=== PATIENT | female | born 1955 | race Caucasian/White ===

== ENCOUNTER → 2016-03-26 | Outpatient (REF) ==
[~2016-03-26] MED LIST: *BLDWK8; *GLUCOMETE; /HALO5TAB PO; /INSU7030; /INSU7030 SC; /IPRA3SP; /LOR25TA OR; /PANT40TA; /TIOT18INH; /TIOT18INH INH; ABIL10TA; ABIL10TA OR; ABILIFY15 PO; ACET65TA; ALB2.5NEB NEB; ALBU17IN INH; ALBU17IN2; ALBU83IN; ALBU83IN IN; ALBUTEROL INHALATION; ARTANE PO; ASPEC325 PO; ASPI81TA83 OR; ASTELIN NASAL; AUG500 PO; BABY81CH; BACL10TA2; BACL10TA2 OR; BACL10TA2 PO; BISA10SU PR; BISA10SU2 RE; CAPOTEN PO; CEFT2VL IM; CIPR500T19; CIPR500T4 OR; COLA100C2; COLACE PO; COMBVENT; CRESTOR5 PO; DEPA250C; DEPA500T; DOXYCYC100 PO; DULCOLAX; EYEDRO; FEVE325S RE; FLEEENE4 PR; FLEETS; FLONASESPR NASAL; FLUO10TA2; FLUO10TA2 OR; FURO40TA2; FURO40TA2 PO; GLUCCOSEAC TOPICAL; GLUCOSACCS; GLUCOSE TEST; HALDOL PO; HALO10TA4; HALO10TA4 PO; HUMA100I SC; HUMULINN SC; INSULANT SC; INSULIN 70/30; KEFL500C OR; KEFLEX500 PO; LACHYDRIN TOP; LANCMIS; LANTUS SQ; LASI40TA OR; LIDO5DIS; LISI10TA4; LISI5TAB OR; LISINOPR10 PO; MACR50CA OR; MILKSUS; MILKSUS PO; MIRALEX; MIRALEX PO; MUCINEX PO; MULTIVIT; MULTIVIT PO; Macrobid; NAPROS500 PO; NICOTROLIN PO; NIFEREX; NOVOLOG100 MG/ML; NOVOLOG100 MG/ML SC; OMEP20TA7 OR; OXYB10TA; OXYB10TA OR; PAIN325T; PAIN325T OR; PLAV75TA2; PLAV75TA2 OR; POLY IRON PO; PRED20TA OR; PROZ10CA; ROBITUSSDM PO; ROBITUSSIN CF PO; ROSU10TA; SENOKOT S PO; SIMV40TA2 OR; SPIRIVA [1,]; SYRINS1CC SUBQ; THERGRAN; TYLE325T5 PO; VALP25EL; VALP25EL OR; VICO5TAB; XALATAN OD; ZEBE5TAB; ZEBE5TAB OR; ZEST10TA; ZOCO40TA; [UNRECOGNIZED DRUG - CODE]; [UNRECOGNIZED DRUG - CODE] PO; [UNRECOGNIZED DRUG - CODE] PO; [UNRECOGNIZED DRUG - OTHER]; [UNRECOGNIZED DRUG - OTHER]; [UNRECOGNIZED DRUG - OTHER]; [UNRECOGNIZED DRUG - OTHER] -; [UNRECOGNIZED DRUG - OTHER] SC; [UNRECOGNIZED DRUG - REMARK] TOPICAL; oxygen
[2016-03-26 10:04] LABS: ALBUMIN 2.5 GM/DL (3.2-5.2); ALBUMIN/GLOBULIN RATIO 0.66 (1.00-1.93); ALKALINE PHOSPHATASE 130 U/L (45-117); ALT/SGPT 19 U/L (12-78); AST/SGOT 10 U/L (15-37); BILIRUBIN,DIRECT < 0.1 MG/DL (0.0-0.2); BILIRUBIN,TOTAL 0.1 MG/DL (0.2-1.0); TOTAL PROTEIN 6.3 GM/DL (6.4-8.2)
[2016-03-26 10:12] LABS: MEAN CORPUSCULAR HEMOGLOBIN 29.4 pg (27.0-33.0); MEAN CORPUSCULAR HGB CONC 32.9 g/dl (32.0-36.5); MEAN CORPUSCULAR VOLUME 89.3 fl (80.0-96.0); RED CELL DISTRIBUTION WIDTH 12.5 % (11.5-14.5); WHITE BLOOD COUNT 5.5 K/mm3 (4.0-10.0)
== END ==
LOC: SKLAB5 08:44
PROVIDERS: ATTEND Family Medicine
DX: D64.9 Anemia, unspecified (principal); Z79.899 Other long term (current) drug therapy

== ENCOUNTER → 2016-04-08 | Outpatient (REF) | LOC: SKLAB5 08:17 | PROVIDERS: ATTEND Family Medicine | DX: R30.0 Dysuria (principal) ==

== ENCOUNTER → 2016-04-28 | Outpatient (REF) | payer MEDICAID | LOC: SKLAB5 15:55 | PROVIDERS: ATTEND Family Medicine | DX: R30.9 Painful micturition, unspecified (principal) ==

== ENCOUNTER → 2016-05-21 | Outpatient (REF) ==
[2016-05-21 09:55] LABS: BASO % 0.6 % (0.0-1.0); EOS # 0.2 K/mm3 (0.0-0.50); LARGE UNSTAINED CELL # 0.2 K/mm3 (0.0-0.4); LARGE UNSTAINED CELL % 2.6 % (0.0-4.0); LYMPH # 3.1 K/mm3 (1.5-4.5); LYMPH % 51.3 % (24.0-44.0); MEAN CORPUSCULAR HEMOGLOBIN 29.9 pg (27.0-33.0); MEAN CORPUSCULAR HGB CONC 32.6 g/dl (32.0-36.5); MEAN CORPUSCULAR VOLUME 91.6 fl (80.0-96.0); MONO # 0.4 K/mm3 (0.0-0.8); MONO % 7.3 % (0.0-5.0); NEUTROPHILS % 34.1 % (36.0-66.0); PLATELET COUNT, AUTOMATED 252 k/mm3 (150-450); RED CELL DISTRIBUTION WIDTH 12.4 % (11.5-14.5); WHITE BLOOD COUNT 5.7 K/mm3 (4.0-10.0)
[2016-05-21 10:05] LABS: ALBUMIN 2.7 GM/DL (3.2-5.2); CREATININE FOR GFR 1.16 MG/DL (0.55-1.02); GLOMERULAR FILTRATION RATE 51.1 (>51); POTASSIUM SERUM 4.4 MEQ/L (3.5-5.1)
== END ==
LOC: SKLAB5 07:12
PROVIDERS: ATTEND Family Medicine
DX: E11.9 Type 2 diabetes mellitus without complications (principal); D64.9 Anemia, unspecified; I50.9 Heart failure, unspecified

== ENCOUNTER → 2016-06-13 | Outpatient (REF) | payer MEDICAID | LOC: SKLAB5 08:21 | PROVIDERS: ATTEND Family Medicine | DX: R73.9 Hyperglycemia, unspecified (principal) ==

== ENCOUNTER → 2016-06-14 | Outpatient (REF) | payer MEDICAID | LOC: SKLAB5 06:45 | PROVIDERS: ATTEND Family Medicine | DX: R73.09 Other abnormal glucose (principal) ==

== ENCOUNTER → 2016-06-18 | Outpatient (REF) | payer MEDICAID | LOC: SKLAB5 23:30 | PROVIDERS: ATTEND Family Medicine | DX: R30.9 Painful micturition, unspecified (principal) ==

== ENCOUNTER → 2016-07-14 | Outpatient (REF) | LOC: SKLAB5 07:05 | PROVIDERS: ATTEND Family Medicine | DX: R73.09 Other abnormal glucose (principal) ==

== ENCOUNTER → 2016-07-15 | Outpatient (REF) | payer MEDICAID | LOC: SKLAB5 18:48 | PROVIDERS: ATTEND Family Medicine | DX: E11.9 Type 2 diabetes mellitus without complications (principal) ==

== ENCOUNTER → 2016-07-17 | Outpatient (REF) | payer MEDICAID | LOC: SKLAB5 05:27 | PROVIDERS: ATTEND Family Medicine | DX: N39.0 Urinary tract infection, site not specified (principal); E11.9 Type 2 diabetes mellitus without complications ==

== ENCOUNTER → 2016-08-09 | Outpatient (REF) | payer MEDICAID | LOC: SKLAB5 12:10 | PROVIDERS: ATTEND Family Medicine | DX: R73.09 Other abnormal glucose (principal) ==

== ENCOUNTER → 2016-08-20 | Outpatient (REF) ==
[2016-08-20 08:39] LABS: BASO # 0.1 K/mm3 (0.0-0.2); EOS # 0.2 K/mm3 (0.0-0.50); EOS % 3.3 % (0.0-3.0); LARGE UNSTAINED CELL # 0.2 K/mm3 (0.0-0.4); LYMPH # 2.8 K/mm3 (1.5-4.5); LYMPH % 43.8 % (24.0-44.0); MEAN CORPUSCULAR HEMOGLOBIN 29.9 pg (27.0-33.0); MEAN CORPUSCULAR HGB CONC 32.5 g/dl (32.0-36.5); MEAN CORPUSCULAR VOLUME 91.8 fl (80.0-96.0); MONO # 0.4 K/mm3 (0.0-0.8); MONO % 6.9 % (0.0-5.0); NEUTROPHILS # 2.5 K/mm3 (1.8-7.7); PLATELET COUNT, AUTOMATED 277 k/mm3 (150-450); RED CELL DISTRIBUTION WIDTH 12.7 % (11.5-14.5); WHITE BLOOD COUNT 5.9 K/mm3 (4.0-10.0)
[2016-08-20 09:50] LABS: ALBUMIN/GLOBULIN RATIO 0.7 (1.00-1.93); BILIRUBIN,TOTAL 0.2 MG/DL (0.2-1.0); CALCIUM LEVEL 9.4 MG/DL (8.5-10.1); CREATININE FOR GFR 1.02 MG/DL (0.55-1.02); GLOMERULAR FILTRATION RATE 59.3 (>51); PHOSPHORUS LEVEL 3.6 MG/DL (2.5-4.9); POTASSIUM SERUM 4.6 MEQ/L (3.5-5.1); TOTAL PROTEIN 7.3 GM/DL (6.4-8.2)
== END ==
LOC: SKLAB5 07:30
PROVIDERS: ATTEND Family Medicine
DX: E11.9 Type 2 diabetes mellitus without complications (principal); D64.9 Anemia, unspecified; E78.5 Hyperlipidemia, unspecified; N18.9 Chronic kidney disease, unspecified

== ENCOUNTER → 2016-08-27 | Outpatient (REF) | payer MEDICAID | LOC: SKLAB5 22:09 | PROVIDERS: ATTEND Family Medicine | DX: R30.9 Painful micturition, unspecified (principal) ==

== ENCOUNTER → 2016-08-28 | Outpatient (REF) | payer MEDICAID | LOC: SKLAB5 16:34 | PROVIDERS: ATTEND Family Medicine | DX: R73.09 Other abnormal glucose (principal) ==

== ENCOUNTER → 2016-09-03 | Outpatient (REF) ==
[2016-09-03 10:30] LABS: BASO # 0.1 K/mm3 (0.0-0.2); BASO % 0.7 % (0.0-1.0); EOS # 0.1 K/mm3 (0.0-0.50); EOS % 1.1 % (0.0-3.0); LARGE UNSTAINED CELL # 0.1 K/mm3 (0.0-0.4); LARGE UNSTAINED CELL % 1.6 % (0.0-4.0); LYMPH % 22.2 % (24.0-44.0); MEAN CORPUSCULAR HEMOGLOBIN 30.3 pg (27.0-33.0); MEAN CORPUSCULAR VOLUME 94.5 fl (80.0-96.0); MONO # 0.7 K/mm3 (0.0-0.8); MONO % 8.2 % (0.0-5.0); NEUTROPHILS # 5.5 K/mm3 (1.8-7.7); NEUTROPHILS % 66.2 % (36.0-66.0); PLATELET COUNT, AUTOMATED 244 k/mm3 (150-450); RED CELL DISTRIBUTION WIDTH 12.6 % (11.5-14.5); WHITE BLOOD COUNT 8.2 K/mm3 (4.0-10.0)
--- NOTE | 2016-09-03 15:04 | REP ---
Chest one-view HISTORY: Cough Comparison: 10/16/1959 The lungs are clear. The heart is upper limits of normal in size. The pulmonary vasculature is normal in appearance. Impression: No acute disease. Signed by Hoang Cruz MD 09/03/2016 02:55 P
== END ==
LOC: SKLAB5 07:36
PROVIDERS: ATTEND Family Medicine
DX: R50.9 Fever, unspecified (principal); R05 Cough; R09.81 Nasal congestion

== ENCOUNTER → 2016-09-13 | Outpatient (REF) | LOC: SKLAB5 08:38 | PROVIDERS: ATTEND Family Medicine | DX: R73.09 Other abnormal glucose (principal) ==

== ENCOUNTER → 2016-09-16 | Outpatient (REF) | LOC: SKLAB5 06:44 | PROVIDERS: ATTEND Family Medicine | DX: E11.649 Type 2 diabetes mellitus with hypoglycemia without coma (principal) ==

== ENCOUNTER → 2016-09-24 | Outpatient (REF) ==
[2016-09-24 10:08] LABS: MEAN CORPUSCULAR HGB CONC 32.2 g/dl (32.0-36.5); MEAN CORPUSCULAR VOLUME 93.3 fl (80.0-96.0); RED CELL DISTRIBUTION WIDTH 12.5 % (11.5-14.5); WHITE BLOOD COUNT 7.7 K/mm3 (4.0-10.0)
[2016-09-24 10:47] LABS: ALBUMIN 2.9 GM/DL (3.2-5.2); ALBUMIN/GLOBULIN RATIO 0.57 (1.00-1.93); ALKALINE PHOSPHATASE 157 U/L (45-117); ALT/SGPT 19 U/L (12-78); AST/SGOT 12 U/L (15-37); BILIRUBIN,DIRECT < 0.1 MG/DL (0.0-0.2); BILIRUBIN,TOTAL 0.2 MG/DL (0.2-1.0)
== END ==
LOC: SKLAB5 08:20
PROVIDERS: ATTEND Family Medicine
DX: J44.9 Chronic obstructive pulmonary disease, unspecified (principal); D64.9 Anemia, unspecified; Z79.899 Other long term (current) drug therapy

== ENCOUNTER → 2016-10-12 | Outpatient (REF) | payer MEDICAID | LOC: M LAB 18:02 → SKLAB5 18:02 | PROVIDERS: ATTEND Family Medicine | DX: R73.09 Other abnormal glucose (principal) ==

== ENCOUNTER → 2016-10-16 | Outpatient (REF) | payer MEDICAID | LOC: SKLAB5 02:09 | PROVIDERS: ATTEND Family Medicine | DX: E11.9 Type 2 diabetes mellitus without complications (principal); R30.9 Painful micturition, unspecified ==

== ENCOUNTER → 2016-10-17 | Outpatient (REF) | payer MEDICAID | LOC: SKLAB5 16:30 | PROVIDERS: ATTEND Family Medicine | DX: R73.09 Other abnormal glucose (principal) ==

== ENCOUNTER → 2016-10-25 | Outpatient (REF) | payer MEDICAID | LOC: SKLAB5 16:40 | PROVIDERS: ATTEND Family Medicine | DX: R73.09 Other abnormal glucose (principal) ==

== ENCOUNTER → 2016-11-04 | Outpatient (REF) | payer MEDICAID | LOC: SKLAB5 18:45 | PROVIDERS: ATTEND Family Medicine | DX: R73.09 Other abnormal glucose (principal) ==

== ENCOUNTER → 2016-11-05 | Outpatient (REF) ==
[2016-11-05 11:58] LABS: BASO % 0.7 % (0.0-1.0); EOS # 0.2 K/mm3 (0.0-0.50); EOS % 3.1 % (0.0-3.0); LARGE UNSTAINED CELL # 0.2 K/mm3 (0.0-0.4); LARGE UNSTAINED CELL % 2.9 % (0.0-4.0); LYMPH # 2.7 K/mm3 (1.5-4.5); LYMPH % 43.4 % (24.0-44.0); MEAN CORPUSCULAR HEMOGLOBIN 30.2 pg (27.0-33.0); MEAN CORPUSCULAR HGB CONC 33.2 g/dl (32.0-36.5); MONO # 0.4 K/mm3 (0.0-0.8); MONO % 6.5 % (0.0-5.0); NEUTROPHILS # 2.5 K/mm3 (1.8-7.7); NEUTROPHILS % 43.5 % (36.0-66.0); PLATELET COUNT, AUTOMATED 217 k/mm3 (150-450); RED CELL DISTRIBUTION WIDTH 12.8 % (11.5-14.5); WHITE BLOOD COUNT 5.8 K/mm3 (4.0-10.0)
[2016-11-05 12:26] LABS: ALBUMIN 2.6 GM/DL (3.2-5.2); ALBUMIN/GLOBULIN RATIO 0.7 (1.00-1.93); BILIRUBIN,TOTAL 0.3 MG/DL (0.2-1.0); CREATININE FOR GFR 1.16 MG/DL (0.55-1.02); GLOMERULAR FILTRATION RATE 50.9 (>51); TOTAL PROTEIN 6.3 GM/DL (6.4-8.2)
--- NOTE | 2016-11-05 20:14 | ECGEPIP ---
Stationary ECG Study [facility] Test Date: 2016-11-05 Pat Name: ANGIE PITTS Department: Room: - Gender: F [employer] Specialist: KIMMIE : 1955 Requested By: Jona Amador Order Number: [id number] Reading MD: Denita Beltrán Measurements Intervals [place] Rate: 64 P: 57 LA: 159 QRS: -19 QRSD: 107 T: 138 QT: 391 QTc: 404 Interpretive Statements SINUS RHYTHM LOW QRS VOLTAGE IN PRECORDIAL LEADS PROBABLE ANTEROLATERAL MYOCARDIAL INFARCTION, OF INDETERMINATE AGE NON-SPECIFIC STT ABNORMALITIES SINCE 01/29/12 SUSPICION FOR UT IS NEW Electronically Signed On 11-05-2016 20:13:44 EDT by Denita Beltrán
== END ==
LOC: SKLAB5 11:10
PROVIDERS: ATTEND Family Medicine
DX: R53.83 Other fatigue (principal); G45.9 Transient cerebral ischemic attack, unspecified

== ENCOUNTER → 2016-11-06 | Outpatient (CLI) | payer MEDICAID, MEDICARE ==
--- NOTE | 2016-11-06 13:13 | REP ---
CAROTID ULTRASOUND: Real-time ultrasound evaluation and duplex Doppler interrogation of the extracranial carotid vasculature is performed. There is mild plaquing and narrowing in both carotid bulbs extending into the internal and external carotid arteries. Luminal narrowing is less than 50%. There is no evidence of hemodynamically significant stenosis of either internal carotid artery. Normal flow velocities are seen. The vertebral arteries could not be visualized. RIGHT LEFT Peak systolic velocity ICA 65.5 cm/s 79.2 cm/s End diastolic velocity ICA 11.3 cm/s 14 cm/s Peak systolic velocity CCA 97.8 cm/s 95.1 cm/s Peak systolic velocity ECA 93.7 cm/s 119 cm/s ICA/CCA ratio 0.67 0.85 IMPRESSION: Bilateral luminal narrowing of the internal carotid arteries less than 50%. No evidence of hemodynamically significant stenosis. Signed by Raffi Hardy MD 11/06/2016 01:04 P
== END ==
LOC: M RAD 12:06
PROVIDERS: ATTEND Family Medicine
DX: G45.9 Transient cerebral ischemic attack, unspecified (principal)

== ENCOUNTER → 2016-11-09 | Outpatient (CLI) | payer MEDICAID | LOC: SKLAB5 17:47 → SKLAB3 17:47 | PROVIDERS: ATTEND Family Medicine | DX: R73.09 Other abnormal glucose (principal) ==

== ENCOUNTER → 2016-11-12 | Outpatient (REF) ==
[2016-11-12 08:54] LABS: ANION GAP 10 MEQ/L (8-16); BLOOD UREA NITROGEN 17 MG/DL (7-18); CALCIUM LEVEL 8.8 MG/DL (8.5-10.1); CARBON DIOXIDE LEVEL 24 MEQ/L (21-32); CHLORIDE LEVEL 109 MEQ/L (98-107); CREATININE FOR GFR 0.91 MG/DL (0.55-1.02); GLOMERULAR FILTRATION RATE > 60.0 (>51); GLUCOSE, FASTING 127 MG/DL (70-105); SODIUM LEVEL 143 MEQ/L (136-145)
== END ==
LOC: SKLAB5 07:49
PROVIDERS: ATTEND Family Medicine
DX: Z86.73 Personal history of transient ischemic attack (TIA), and cerebral infarction without residual deficits (principal)

== ENCOUNTER → 2016-11-13 | Outpatient (REF) ==
[2016-11-13 12:30] LABS: BASO % 0.6 % (0.0-1.0); EOS % 0.3 % (0.0-3.0); LARGE UNSTAINED CELL # 0.2 K/mm3 (0.0-0.4); LARGE UNSTAINED CELL % 2.6 % (0.0-4.0); LYMPH # 2.3 K/mm3 (1.5-4.5); MEAN CORPUSCULAR HEMOGLOBIN 29.6 pg (27.0-33.0); MEAN CORPUSCULAR HGB CONC 32.1 g/dl (32.0-36.5); MEAN CORPUSCULAR VOLUME 92.5 fl (80.0-96.0); MONO # 0.7 K/mm3 (0.0-0.8); NEUTROPHILS # 4.2 K/mm3 (1.8-7.7); NEUTROPHILS % 58.4 % (36.0-66.0); PLATELET COUNT, AUTOMATED 211 k/mm3 (150-450); RED CELL DISTRIBUTION WIDTH 12.9 % (11.5-14.5); WHITE BLOOD COUNT 7.2 K/mm3 (4.0-10.0)
[2016-11-13 13:00] LABS: CALCIUM LEVEL 9.4 MG/DL (8.5-10.1); CREATININE FOR GFR 1.14 MG/DL (0.55-1.02); GLOMERULAR FILTRATION RATE 51.9 (>51); POTASSIUM SERUM 4.7 MEQ/L (3.5-5.1)
--- NOTE | 2016-11-13 13:36 | REP ---
PORTABLE CHEST: AP portable view of the chest is performed. COMPARISON: 09/03/2016. There is mild cardiomegaly. There is pulmonary venous hypertension. No new infiltrates are seen. There is mild calcification of the thoracic aorta. IMPRESSION: Cardiomegaly and venous hypertension. No acute infiltrate. Signed by Raffi Hardy MD 11/13/2016 05:22 P
== END ==
LOC: SKLAB5 06:39
PROVIDERS: ATTEND Family Medicine
DX: R50.9 Fever, unspecified (principal)

== ENCOUNTER → 2016-11-16 | Outpatient (REF) | LOC: SKLAB5 06:38 | PROVIDERS: ATTEND Family Medicine | DX: R73.09 Other abnormal glucose (principal) ==

== ENCOUNTER → 2016-11-26 | Outpatient (CLI) | payer MEDICAID ==
--- NOTE | 2016-11-26 17:21 | REP ---
Clinical: Lower chest pain and constipation . Comparison: 11/13/2016 . Findings: The mediastinum and cardiac silhouette are stable and within normal limits for portable technique. The lung car are clear without acute consolidation, effusion, or pneumothorax. Skeletal structures are intact. Impression: No acute cardiopulmonary process appreciated. Signed by Speedy Hirsch MD 11/26/2016 05:13 P
== END ==
LOC: M RAD 17:03
PROVIDERS: ATTEND Family Medicine
DX: K59.00 Constipation, unspecified (principal)

== ENCOUNTER → 2016-11-26 | Outpatient (REF) ==
[2016-11-26 09:02] LABS: BASO % 0.8 % (0.0-1.0); EOS # 0.2 K/mm3 (0.0-0.50); EOS % 3.4 % (0.0-3.0); LARGE UNSTAINED CELL # 0.3 K/mm3 (0.0-0.4); LARGE UNSTAINED CELL % 5.2 % (0.0-4.0); LYMPH # 2.4 K/mm3 (1.5-4.5); LYMPH % 48.4 % (24.0-44.0); MEAN CORPUSCULAR HGB CONC 32.4 g/dl (32.0-36.5); MEAN CORPUSCULAR VOLUME 92.4 fl (80.0-96.0); MONO # 0.4 K/mm3 (0.0-0.8); MONO % 7.5 % (0.0-5.0); NEUTROPHILS # 1.7 K/mm3 (1.8-7.7); NEUTROPHILS % 34.6 % (36.0-66.0); PLATELET COUNT, AUTOMATED 328 k/mm3 (150-450); RED CELL DISTRIBUTION WIDTH 13.7 % (11.5-14.5)
[2016-11-26 09:19] LABS: ALBUMIN 2.5 GM/DL (3.2-5.2); ANION GAP 8 MEQ/L (8-16); BLOOD UREA NITROGEN 16 MG/DL (7-18); CALCIUM LEVEL 9.2 MG/DL (8.5-10.1); CARBON DIOXIDE LEVEL 26 MEQ/L (21-32); CHLORIDE LEVEL 107 MEQ/L (98-107); CREATININE FOR GFR 0.99 MG/DL (0.55-1.02); GLOMERULAR FILTRATION RATE > 60.0 (>51); GLUCOSE, FASTING 143 MG/DL (70-105); PHOSPHORUS LEVEL 2.8 MG/DL (2.5-4.9); SODIUM LEVEL 141 MEQ/L (136-145)
[2016-11-26 09:25] LABS: POTASSIUM SERUM 5.7 MEQ/L (3.5-5.1)
== END ==
LOC: SKLAB5 07:31
PROVIDERS: ATTEND Family Medicine
DX: E11.9 Type 2 diabetes mellitus without complications (principal); D64.9 Anemia, unspecified

== ENCOUNTER → 2016-11-27 | Outpatient (REF) | payer MEDICAID | LOC: SKLAB5 01:51 | PROVIDERS: ATTEND Family Medicine | DX: R09.81 Nasal congestion (principal); M79.673 Pain in unspecified foot ==

== ENCOUNTER → 2016-12-17 | Outpatient (REF) | LOC: SKLAB5 06:44 | PROVIDERS: ATTEND Family Medicine | DX: R73.09 Other abnormal glucose (principal) ==

== ENCOUNTER → 2017-01-31 | Outpatient (REF) | payer MEDICAID | LOC: SKLAB5 06:50 | PROVIDERS: ATTEND Family Medicine | DX: E16.2 Hypoglycemia, unspecified (principal) ==

== ENCOUNTER → 2017-02-01 | Outpatient (REF) | LOC: SKLAB5 11:48 | PROVIDERS: ATTEND Family Medicine | DX: E11.9 Type 2 diabetes mellitus without complications (principal) ==

== ENCOUNTER → 2017-02-11 | Outpatient (REF) | payer MEDICAID | LOC: SKLAB5 13:00 | PROVIDERS: ATTEND Family Medicine | DX: E16.2 Hypoglycemia, unspecified (principal); R53.83 Other fatigue ==

== ENCOUNTER → 2017-02-12 | Outpatient (REF) | LOC: SKLAB5 07:29 | PROVIDERS: ATTEND Family Medicine | DX: E16.1 Other hypoglycemia (principal) ==

== ENCOUNTER → 2017-02-17 | Outpatient (REF) ==
[2017-02-17 10:33] LABS: BLOOD UREA NITROGEN 10 MG/DL (7-18); CREATININE FOR GFR 0.89 MG/DL (0.55-1.02); GLOMERULAR FILTRATION RATE > 60.0 (>51)
== END ==
LOC: SKLAB5 07:46
PROVIDERS: ATTEND Family Medicine
DX: I73.9 Peripheral vascular disease, unspecified (principal)

== ENCOUNTER → 2017-02-18 | Outpatient (REF) | payer MEDICAID | LOC: SKLAB5 22:54 | PROVIDERS: ATTEND Family Medicine | DX: R30.0 Dysuria (principal) ==

== ENCOUNTER → 2017-02-24 | Outpatient (CLI) | payer MEDICAID ==
[~2017-02-24] MED LIST changes: +ISOVUE-370 76% 100ML VIAL (Q9967) As Ordered ONE
--- NOTE | 2017-02-24 11:14 | REP ---
CT ANGIOGRAM ABDOMINAL AORTA WITH RUNOFF LOWER EXTREMITY CT ANGIOGRAM: 02/24/2017. Comparison: 04/26/2015. Clinical history: Peripheral arterial disease, left leg ulceration on the foot. Technique: Bolus of 100 mL Isovue [address] aortogram and runoff technique performed. Coronal and sagittal reconstructions with MIP reformats, curved reformat of the right and left iliac and femoral arteries and 3-D surface rendering rotated about the longitudinal axis of the body. CT non-angiographic findings: Abdomen: Lung bases were clear. Heart shows some left atrial enlargement. No gross cardiomegaly or pericardial thickening/effusion and no hiatal hernia. Liver and spleen without focal lesion. The left hepatic lobe is mildly prominent. No gross hepatomegaly. Gallbladder shows no calcified stone or mass. Spleen is not enlarged. Adrenal glands normal. Kidneys show function without obstruction, stone or mass. Ureters show normal course to the bladder without stone. There is no periaortic or retroperitoneal pathologic sized lymphadenopathy. Pancreas grossly intact. Small bowel loops in the abdomen proper were unremarkable. There is some diastasis of the rectus muscles near the umbilicus with omental fat herniation into the umbilicus. The colon shows scattered stool and gas without signs of colitis or diverticulitis. I see no perforation or free air in the abdomen or pelvis on lung window review of all CT slices. Bone windows show lumbar and lower thoracic spine without compression deformity or destructive lesions. Posterior elements and the visualized ribs also grossly intact. CT pelvis: Bone windows show sacrum, SI joints, pelvis and hips with minor degenerative change without destructive lesion or fractures. Small bowel loops in the deep pelvis unremarkable. Distal left colon to the rectosigmoid intact. Uterus not enlarged and tilted to the left side of the pelvis. No pelvic mass. No pelvic adenopathy or ascites. No inguinal or pelvic ventral hernia. No inguinal adenopathy. Lower extremities: The anterior and posterior compartment musculatures of the thighs and calves and are were grossly symmetric without discrete mass or fluid collection. There is subcutaneous edema in the calf and left greater than right foot. Some minor stranding and subcutaneous fat laterally to the thigh. No abnormal fluid collection. Bone windows show the femoral shafts intact. There are some degenerative changes at the left greater than right knee. Tibia and fibula intact. Degenerative changes are seen in the left greater than right foot. I do not see subcutaneous emphysema in the lower extremities. CT angiogram: The abdominal aorta shows minimal scattered plaques without dilatation. No aneurysm or dissection. Origins of the renal arteries are fairly symmetric. The takeoff of the celiac axis and SMA were normal. Iliac arteries: There are atherosclerotic plaques in the proximal common iliacs. The right has a greater diameter than the left. The external iliacs show multiple stents on the left. The right external iliac shows some plaque with the minor stenosis at its junction with the common femoral artery and proximally with the takeoff of the internal iliac. Femoral arteries: The right common femoral artery shows minimal stenosis near the takeoff of the profunda femoris. There is some scattered plaques in that profunda and a moderately severe stenosis in the mid distal SFA. No caliber change below it. Popliteal artery on the right is without stenosis. The left common femoral shows significant plaque and the SFA shows no flow after takeoff of the profunda. There is reconstitution of the distal SFA by collaterals at the level of the popliteal artery. Bilateral lower legs: There is no stenosis of the right popliteal artery. The runoff in the right lower extremity is passed through the peroneal artery with limited flow due to multiple stenoses in the posterior and anterior tibial arteries. The left popliteal artery is reconstituted and the best flow toward the ankle was via the anterior tibial artery which itself has multiple stenoses and distally with the peroneal and posterior tibial showing more stenoses, none of these vessels shows contiguous flow to the ankle. Impression: 1. Atherosclerotic disease as described and with multiple stents left external iliac artery with occlusion of the common femoral and superficial femoral artery on the left reconstituted at the popliteal artery. No named vessel reaches the ankle in a continuous fashion on the left. 2. There is atherosclerotic plaque and some scattered stenoses in the right lower extremity, only the peroneal artery on the right reaches the ankle with the anterior and posterior tibials showing multiple stenoses with less flow than peroneal. 3. Some atherosclerotic plaque distal abdominal aorta and common iliacs as noted. 4. Left atrial enlargement, but no gross cardiomegaly. No significant findings otherwise abdomen and pelvis. 5. Diffuse subcutaneous edema left lower leg and foot without destructive bone lesion clearly identified. There is some minor soft tissue edema lateral aspect of the thigh in the subcutaneous fat. Signed by Sanjay Garcia MD 02/24/2017 07:35 P
== END ==
LOC: M RAD 08:36
PROVIDERS: ATTEND Surgery Vascular Surgery
DX: I70.245 Atherosclerosis of native arteries of left leg with ulceration of other part of foot (principal)
CPT/HCPCS: 75635; Q9967

== ENCOUNTER → 2017-02-25 | Outpatient (REF) ==
[~2017-02-25] MED LIST changes: -ISOVUE-370 76% 100ML VIAL (Q9967) As Ordered ONE
[2017-02-25 09:11] LABS: BASO # 0.1 10^3/uL (0.0-0.2); BASO % 1.1 % (0.0-1.0); EOS # 0.2 10^3/uL (0.0-0.50); IMMATURE GRANULOCYTE % 0.2 % (0-0); LYMPH # 2.8 10^3/uL (1.5-4.5); LYMPH % 52.7 % (24.0-44.0); MEAN CORPUSCULAR HGB CONC 31.6 g/dl (32.0-36.5); MEAN CORPUSCULAR VOLUME 91.8 fl (80.0-96.0); MONO # 0.6 10^3/uL (0.0-0.8); MONO % 10.8 % (0.0-5.0); NEUTROPHILS # 1.7 10^3/uL (1.8-7.7); NEUTROPHILS % 32.2 % (36.0-66.0); PLATELET COUNT, AUTOMATED 203 10^3/uL (150-450); RED CELL DISTRIBUTION WIDTH 13.1 % (11.5-14.5); WHITE BLOOD COUNT 5.4 10^3/uL (4.0-10.0)
[2017-02-25 09:41] LABS: ALBUMIN 2.4 GM/DL (3.2-5.2); ALBUMIN/GLOBULIN RATIO 0.62 (1.00-1.93); ALKALINE PHOSPHATASE 113 U/L (45-117); ALT/SGPT 12 U/L (12-78); ANION GAP 7 MEQ/L (8-16); AST/SGOT 10 U/L (7-37); BILIRUBIN,TOTAL 0.2 MG/DL (0.2-1.0); BLOOD UREA NITROGEN 15 MG/DL (7-18); CALCIUM LEVEL 8.8 MG/DL (8.5-10.1); CARBON DIOXIDE LEVEL 28 MEQ/L (21-32); CHLORIDE LEVEL 108 MEQ/L (98-107); CHOLESTEROL LEVEL 102 MG/DL (<200); CREATININE FOR GFR 0.83 MG/DL (0.55-1.02); GLOMERULAR FILTRATION RATE > 60.0 (>51); GLUCOSE, FASTING 70 MG/DL (70-105); PHOSPHORUS LEVEL 3.5 MG/DL (2.5-4.9); POTASSIUM SERUM 4.2 MEQ/L (3.5-5.1); SODIUM LEVEL 143 MEQ/L (136-145); TOTAL PROTEIN 6.3 GM/DL (6.4-8.2); TRIGLYCERIDES LEVEL 76 MG/DL (<150)
== END ==
LOC: SKLAB5 07:49
PROVIDERS: ATTEND Family Medicine
DX: E11.9 Type 2 diabetes mellitus without complications (principal); D64.9 Anemia, unspecified; R56.9 Unspecified convulsions

== ENCOUNTER → 2017-03-18 | Outpatient (REF) | LOC: SKLAB5 12:25 | DX: E16.2 Hypoglycemia, unspecified (principal) ==

== ENCOUNTER → 2017-03-21 | Outpatient (REF) | payer MEDICAID | LOC: SKLAB5 16:35 | DX: E16.2 Hypoglycemia, unspecified (principal) | CPT/HCPCS: 82947 ==

== ENCOUNTER → 2017-03-24 | Outpatient (REF) | payer MEDICAID ==
[2017-03-24 05:39] LABS: APPEARANCE, URINE CLEAR (CLEAR); BACTERIA, URINE AUTO 1+ (NEGATIVE); BILIRUBIN, URINE AUTO NEGATIVE (NEGATIVE); BLOOD, URINE BLOOD NEGATIVE (NEGATIVE); COLOR, URINE YELLOW (YELLOW); GLUCOSE, URINE (UA) AUTO NEGATIVE (NEGATIVE); KETONE, URINE AUTO NEGATIVE (NEGATIVE); LEUKOCYTE ESTERASE, URINE AUTO 2+ (NEGATIVE); NITRITE, URINE AUTO POSITIVE (NEGATIVE); PROTEIN, URINE AUTO NEGATIVE (NEGATIVE); RBC, URINE AUTO 3 /HPF (0-3); SPECIFIC GRAVITY URINE AUTO 1.004 (1.002-1.035); SQUAMOUS EPITHELIAL CELL UR AU 0 /HPF (0-6); UROBILINOGEN, URINE AUTO 0.2 mg/dL (0.0-2.0); WBC, URINE AUTO 10 /HPF (0-3)
== END ==
LOC: SKLAB5 04:30
DX: R30.0 Dysuria (principal)
CPT/HCPCS: 81001

== ENCOUNTER → 2017-03-25 | Outpatient (REF) ==
[2017-03-25 09:05] LABS: HEMATOCRIT 30.2 % (36.0-47.0); HEMOGLOBIN 9.8 g/dl (12.0-16.0); MEAN CORPUSCULAR HEMOGLOBIN 29.3 pg (27.0-33.0); MEAN CORPUSCULAR HGB CONC 32.5 g/dl (32.0-36.5); MEAN CORPUSCULAR VOLUME 90.4 fl (80.0-96.0); PLATELET COUNT, AUTOMATED 197 10^3/uL (150-450); RED BLOOD COUNT 3.34 10^6/uL (4.00-5.40); RED CELL DISTRIBUTION WIDTH 12.8 % (11.5-14.5); WHITE BLOOD COUNT 6.9 10^3/uL (4.0-10.0)
[2017-03-25 09:25] LABS: ALBUMIN 2.8 GM/DL (3.2-5.2); ALKALINE PHOSPHATASE 114 U/L (45-117); ALT/SGPT 16 U/L (12-78); AST/SGOT 12 U/L (7-37); BILIRUBIN,DIRECT < 0.1 MG/DL (0.0-0.2); BILIRUBIN,TOTAL 0.2 MG/DL (0.2-1.0); TOTAL PROTEIN 6.3 GM/DL (6.4-8.2)
== END ==
LOC: SKLAB5 07:50
DX: D64.9 Anemia, unspecified (principal); T50.905A Adverse effect of unspecified drugs, medicaments and biological substances, initial encounter; Y92.129 Unspecified place in nursing home as the place of occurrence of the external cause

== ENCOUNTER → 2017-04-20 | Outpatient (REF) | payer MEDICAID ==
[2017-04-20 14:33] LABS: APPEARANCE, URINE HAZY (CLEAR); BACTERIA, URINE AUTO 3+ (NEGATIVE); BILIRUBIN, URINE AUTO NEGATIVE (NEGATIVE); BLOOD, URINE BLOOD NEGATIVE (NEGATIVE); COLOR, URINE YELLOW (YELLOW); GLUCOSE, URINE (UA) AUTO NEGATIVE (NEGATIVE); KETONE, URINE AUTO NEGATIVE (NEGATIVE); LEUKOCYTE ESTERASE, URINE AUTO 3+ (NEGATIVE); NITRITE, URINE AUTO NEGATIVE (NEGATIVE); PROTEIN, URINE AUTO 1+ mg/dL (NEGATIVE); RBC, URINE AUTO 11 /HPF (0-3); SPECIFIC GRAVITY URINE AUTO 1.013 (1.002-1.035); SQUAMOUS EPITHELIAL CELL UR AU 0 /HPF (0-6); UROBILINOGEN, URINE AUTO 0.2 mg/dL (0.0-2.0); WBC, URINE AUTO 101 /HPF (0-3); YEAST LIKE CELL URINE AUTO SMALL
== END ==
LOC: SKLAB5 13:00
DX: N39.0 Urinary tract infection, site not specified (principal)
CPT/HCPCS: 81001

== ENCOUNTER → 2017-05-04 | Outpatient (REF) | LOC: SKLAB5 12:11 | DX: H60.10 Cellulitis of external ear, unspecified ear (principal) ==

== ENCOUNTER → 2017-05-10 | Outpatient (REF) ==
[2017-05-10 11:58] LABS: INFLUENZA A AMPLIFICATION NEGATIVE (NEGATIVE); INFLUENZA B AMPLIFICATION NEGATIVE (NEGATIVE); RSV AMPLIFICATION NEGATIVE (NEGATIVE)
[2017-05-10 13:55] LABS: ANION GAP 10 MEQ/L (8-16); BLOOD UREA NITROGEN 22 MG/DL (7-18); CALCIUM LEVEL 8.8 MG/DL (8.5-10.1); CARBON DIOXIDE LEVEL 24 MEQ/L (21-32); CHLORIDE LEVEL 100 MEQ/L (98-107); CREATININE FOR GFR 1.41 MG/DL (0.55-1.30); GLOMERULAR FILTRATION RATE 40.6 (>51); NT-PRO BNP 2333 PG/ML (<125); SODIUM LEVEL 134 MEQ/L (136-145)
[2017-05-10 13:58] LABS: GLUCOSE, FASTING 530 MG/DL (70-100); POTASSIUM SERUM 6.4 MEQ/L (3.5-5.1)
== END ==
LOC: SKLAB5 11:11
DX: I50.9 Heart failure, unspecified (principal); I51.7 Cardiomegaly; J81.1 Chronic pulmonary edema

== ENCOUNTER → 2017-05-11 | Outpatient (REF) | payer MEDICAID ==
[2017-05-11 08:15] LABS: ANION GAP 7 MEQ/L (8-16); BLOOD UREA NITROGEN 16 MG/DL (7-18); CALCIUM LEVEL 8.7 MG/DL (8.5-10.1); CARBON DIOXIDE LEVEL 25 MEQ/L (21-32); CHLORIDE LEVEL 105 MEQ/L (98-107); GLOMERULAR FILTRATION RATE > 60.0 (>51); GLUCOSE, FASTING 128 MG/DL (70-100); SODIUM LEVEL 137 MEQ/L (136-145)
[2017-05-11 08:16] LABS: POTASSIUM SERUM 5.5 MEQ/L (3.5-5.1)
== END ==
LOC: SKLAB5 07:25
DX: E87.5 Hyperkalemia (principal)

== ENCOUNTER → 2017-05-13 | Outpatient (REF) ==
[2017-05-13 10:29] LABS: ANION GAP 6 MEQ/L (8-16); BLOOD UREA NITROGEN 15 MG/DL (7-18); CALCIUM LEVEL 8.8 MG/DL (8.5-10.1); CARBON DIOXIDE LEVEL 25 MEQ/L (21-32); CHLORIDE LEVEL 105 MEQ/L (98-107); CREATININE FOR GFR 1.09 MG/DL (0.55-1.30); GLOMERULAR FILTRATION RATE 54.7 (>51); GLUCOSE, FASTING 312 MG/DL (70-100); SODIUM LEVEL 136 MEQ/L (136-145)
[2017-05-13 10:34] LABS: POTASSIUM SERUM 5.7 MEQ/L (3.5-5.1)
== END ==
LOC: SKLAB5 07:15
DX: E11.9 Type 2 diabetes mellitus without complications (principal)

== ENCOUNTER → 2017-05-20 | Outpatient (REF) ==
[2017-05-20 08:38] LABS: BASO # 0.1 10^3/uL (0.0-0.2); BASO % 1.3 % (0.0-1.0); EOS # 0.2 10^3/uL (0.0-0.50); EOS % 2.9 % (0.0-3.0); HEMATOCRIT 29.3 % (36.0-47.0); HEMOGLOBIN 9.6 g/dl (12.0-16.0); IMMATURE GRANULOCYTE % 0.4 % (0-3.0); LYMPH # 2.8 10^3/uL (1.5-4.5); LYMPH % 50.5 % (24.0-44.0); MEAN CORPUSCULAR HEMOGLOBIN 29.6 pg (27.0-33.0); MEAN CORPUSCULAR HGB CONC 32.8 g/dl (32.0-36.5); MEAN CORPUSCULAR VOLUME 90.4 fl (80.0-96.0); MONO # 0.6 10^3/uL (0.0-0.8); MONO % 10.9 % (0.0-5.0); NEUTROPHILS # 1.9 10^3/uL (1.8-7.7); PLATELET COUNT, AUTOMATED 247 10^3/uL (150-450); RED BLOOD COUNT 3.24 10^6/uL (4.00-5.40); RED CELL DISTRIBUTION WIDTH 12.9 % (11.5-14.5); WHITE BLOOD COUNT 5.6 10^3/uL (4.0-10.0)
[2017-05-20 09:02] LABS: ALBUMIN 2.7 GM/DL (3.2-5.2); ALT/SGPT 13 U/L (12-78); ANION GAP 3 MEQ/L (8-16); BLOOD UREA NITROGEN 16 MG/DL (7-18); CARBON DIOXIDE LEVEL 30 MEQ/L (21-32); CHLORIDE LEVEL 106 MEQ/L (98-107); CHOLESTEROL LEVEL 127 MG/DL (<200); CHOLESTEROL RISK RATIO 2.396 (<5); CREATININE FOR GFR 0.82 MG/DL (0.55-1.30); GLOMERULAR FILTRATION RATE > 60.0 (>51); GLUCOSE, FASTING 280 MG/DL (70-100); HDL CHOLESTEROL 53 MG/DL (>40); LDL CHOLESTEROL 49.8 MG/DL (<100); NON-HDL-C 74 MG/DL; PHOSPHORUS LEVEL 3.3 MG/DL (2.5-4.9); SODIUM LEVEL 139 MEQ/L (136-145); TRIGLYCERIDES LEVEL 121 MG/DL (<150); VALPROIC ACID (DEPAKOTE) 51.3 UG/ML (50.0-100.0)
[2017-05-20 09:13] LABS: POTASSIUM SERUM 5.2 MEQ/L (3.5-5.1)
[2017-05-20 09:16] LABS: ESTIMATED AVERAGE GLUCOSE 226 MG/DL (60-110); HEMOGLOBIN A1c 9.5 %
== END ==
LOC: SKLAB5 07:25
DX: E11.9 Type 2 diabetes mellitus without complications (principal); D64.9 Anemia, unspecified; I50.9 Heart failure, unspecified; Z86.73 Personal history of transient ischemic attack (TIA), and cerebral infarction without residual deficits

== ENCOUNTER → 2017-07-21 | Outpatient (REF) ==
[2017-07-21 08:19] LABS: BASO # 0.1 10^3/uL (0.0-0.2); EOS # 0.1 10^3/uL (0.0-0.50); EOS % 2.5 % (0.0-3.0); HEMOGLOBIN 9.5 g/dl (12.0-15.5); IMMATURE GRANULOCYTE % 0.6 % (0-3.0); LYMPH # 2.9 10^3/uL (1.5-4.5); LYMPH % 55.5 % (24.0-44.0); MEAN CORPUSCULAR HEMOGLOBIN 29.7 pg (27.0-33.0); MEAN CORPUSCULAR HGB CONC 32.8 g/dl (32.0-36.5); MEAN CORPUSCULAR VOLUME 90.6 fl (80.0-96.0); MONO # 0.5 10^3/uL (0.0-0.8); MONO % 9.9 % (0.0-5.0); NEUTROPHILS # 1.6 10^3/uL (1.8-7.7); NEUTROPHILS % 30.5 % (36.0-66.0); PLATELET COUNT, AUTOMATED 243 10^3/uL (150-450); WHITE BLOOD COUNT 5.3 10^3/uL (4.0-10.0)
[2017-07-21 08:52] LABS: ALBUMIN 2.2 GM/DL (3.2-5.2); ALBUMIN/GLOBULIN RATIO 0.67 (1.00-1.93); ALKALINE PHOSPHATASE 99 U/L (45-117); ALT/SGPT 12 U/L (12-78); ANION GAP 6 MEQ/L (8-16); AST/SGOT 14 U/L (7-37); BILIRUBIN,TOTAL 0.1 MG/DL (0.2-1.0); BLOOD UREA NITROGEN 9 MG/DL (7-18); CALCIUM LEVEL 8.5 MG/DL (8.5-10.1); CARBON DIOXIDE LEVEL 29 MEQ/L (21-32); CHLORIDE LEVEL 109 MEQ/L (98-107); CREATININE FOR GFR 0.69 MG/DL (0.55-1.30); GLOMERULAR FILTRATION RATE > 60.0 (>51); GLUCOSE, FASTING 161 MG/DL (70-100); SODIUM LEVEL 144 MEQ/L (136-145); TOTAL PROTEIN 5.5 GM/DL (6.4-8.2)
== END ==
LOC: SKLAB5 07:12
DX: D64.9 Anemia, unspecified (principal); R53.83 Other fatigue

== ENCOUNTER → 2017-08-03 | Outpatient (REF) ==
[2017-08-03 08:23] LABS: BEDSIDE GLUCOSE CONFIRMATION 84 MG/DL (LESS THAN 200)
== END ==
LOC: SKLAB5 07:10
DX: E16.1 Other hypoglycemia (principal)

== ENCOUNTER → 2017-08-13 | Outpatient (REF) | payer MEDICAID ==
[2017-08-13 08:23] LABS: BEDSIDE GLUCOSE CONFIRMATION 94 MG/DL (LESS THAN 200)
== END ==
LOC: SKLAB5 04:50
DX: E16.2 Hypoglycemia, unspecified (principal)
CPT/HCPCS: 82947

== ENCOUNTER → 2017-08-16 | Outpatient (REF) | payer MEDICAID ==
[2017-08-16 03:17] LABS: BEDSIDE GLUCOSE CONFIRMATION 148 MG/DL (LESS THAN 200)
== END ==
LOC: SKLAB5 01:55
DX: E16.2 Hypoglycemia, unspecified (principal)
CPT/HCPCS: 82947

== ENCOUNTER → 2017-08-26 | Outpatient (REF) ==
[2017-08-26 07:51] LABS: BASO % 0.9 % (0.0-1.0); EOS # 0.2 10^3/uL (0.0-0.50); EOS % 3.9 % (0.0-3.0); HEMATOCRIT 33.2 % (36.0-47.0); HEMOGLOBIN 10.7 g/dl (12.0-15.5); IMMATURE GRANULOCYTE % 0.2 % (0-3.0); LYMPH % 63.9 % (24.0-44.0); MEAN CORPUSCULAR HEMOGLOBIN 29.8 pg (27.0-33.0); MEAN CORPUSCULAR HGB CONC 32.2 g/dl (32.0-36.5); MEAN CORPUSCULAR VOLUME 92.5 fl (80.0-96.0); MONO # 0.5 10^3/uL (0.0-0.8); MONO % 9.9 % (0.0-5.0); NEUTROPHILS % 21.2 % (36.0-66.0); PLATELET COUNT, AUTOMATED 192 10^3/uL (150-450); RED BLOOD COUNT 3.59 10^6/uL (4.00-5.40); RED CELL DISTRIBUTION WIDTH 13.3 % (11.5-14.5); WHITE BLOOD COUNT 4.7 10^3/uL (4.0-10.0)
[2017-08-26 08:19] LABS: ALBUMIN 2.3 GM/DL (3.2-5.2); ANION GAP 6 MEQ/L (8-16); BLOOD UREA NITROGEN 8 MG/DL (7-18); CALCIUM LEVEL 8.9 MG/DL (8.5-10.1); CARBON DIOXIDE LEVEL 29 MEQ/L (21-32); CHLORIDE LEVEL 110 MEQ/L (98-107); CREATININE FOR GFR 0.69 MG/DL (0.55-1.30); GLOMERULAR FILTRATION RATE > 60.0 (>51); GLUCOSE, FASTING 97 MG/DL (70-100); PHOSPHORUS LEVEL 3.4 MG/DL (2.5-4.9); POTASSIUM SERUM 4.3 MEQ/L (3.5-5.1); SODIUM LEVEL 145 MEQ/L (136-145)
[2017-08-26 08:37] LABS: POSITIVE DIFF POS FLAG
[2017-08-26 10:24] LABS: ESTIMATED AVERAGE GLUCOSE 177 MG/DL (60-110); HEMOGLOBIN A1c 7.8 %
== END ==
LOC: SKLAB5 12:16
DX: E11.9 Type 2 diabetes mellitus without complications (principal); I50.9 Heart failure, unspecified; D64.9 Anemia, unspecified; I11.0 Hypertensive heart disease with heart failure

== ENCOUNTER → 2017-09-06 | Outpatient (REF) | payer MEDICAID ==
[2017-09-06 08:36] LABS: BEDSIDE GLUCOSE CONFIRMATION 98 MG/DL (LESS THAN 200)
== END ==
LOC: SKLAB5 05:15
DX: E16.2 Hypoglycemia, unspecified (principal)
CPT/HCPCS: 82947

== ENCOUNTER → 2017-09-13 | Outpatient (REF) | payer MEDICAID ==
[2017-09-13 14:32] LABS: APPEARANCE, URINE CLOUDY (CLEAR); BACTERIA, URINE AUTO 3+ (NEGATIVE); BILIRUBIN, URINE AUTO NEGATIVE (NEGATIVE); BLOOD, URINE BLOOD NEGATIVE (NEGATIVE); COLOR, URINE YELLOW (YELLOW); GLUCOSE, URINE (UA) AUTO 2+ mg/dL (NEGATIVE); KETONE, URINE AUTO NEGATIVE (NEGATIVE); LEUKOCYTE ESTERASE, URINE AUTO 3+ (NEGATIVE); MUCUS, URINE SMALL (NEGATIVE); NITRITE, URINE AUTO NEGATIVE (NEGATIVE); PROTEIN, URINE AUTO NEGATIVE (NEGATIVE); RBC, URINE AUTO 35 /HPF (0-3); SQUAMOUS EPITHELIAL CELL UR AU 2 /HPF (0-6); TRANSITIONAL EPITHELIAL AUTO 2 /HPF; UROBILINOGEN, URINE AUTO 0.2 mg/dL (0.0-2.0); WBC, URINE AUTO TNTC /HPF (0-3)
== END ==
LOC: SKLAB5 12:55
DX: R30.0 Dysuria (principal)
CPT/HCPCS: 81001

== ENCOUNTER → 2017-09-16 | Outpatient (REF) ==
[2017-09-16 07:51] LABS: BEDSIDE GLUCOSE CONFIRMATION 48 MG/DL (LESS THAN 200)
== END ==
LOC: SKLAB5 07:12
DX: E16.2 Hypoglycemia, unspecified (principal)

== ENCOUNTER → 2017-09-23 | Outpatient (REF) ==
[2017-09-23 08:45] LABS: HEMATOCRIT 37.4 % (36.0-47.0); HEMOGLOBIN 11.9 g/dl (12.0-15.5); MEAN CORPUSCULAR HEMOGLOBIN 29.7 pg (27.0-33.0); MEAN CORPUSCULAR HGB CONC 31.8 g/dl (32.0-36.5); MEAN CORPUSCULAR VOLUME 93.3 fl (80.0-96.0); PLATELET COUNT, AUTOMATED 197 10^3/uL (150-450); RED BLOOD COUNT 4.01 10^6/uL (4.00-5.40); RED CELL DISTRIBUTION WIDTH 13.3 % (11.5-14.5); WHITE BLOOD COUNT 5.1 10^3/uL (4.0-10.0)
[2017-09-23 09:03] LABS: ALBUMIN 2.8 GM/DL (3.2-5.2); ALBUMIN/GLOBULIN RATIO 0.68 (1.00-1.93); ALKALINE PHOSPHATASE 133 U/L (45-117); ALT/SGPT 22 U/L (12-78); AST/SGOT 26 U/L (7-37); BILIRUBIN,DIRECT < 0.1 MG/DL (0.0-0.2); BILIRUBIN,TOTAL 0.2 MG/DL (0.2-1.0); TOTAL PROTEIN 6.9 GM/DL (6.4-8.2)
== END ==
LOC: SKLAB5 07:19
DX: D64.9 Anemia, unspecified (principal); Z79.899 Other long term (current) drug therapy

== ENCOUNTER → 2017-09-30 | Outpatient (CLI) | payer MEDICAID | LOC: M LAB 19:27 | DX: R30.0 Dysuria (principal) | CPT/HCPCS: 87186 ==

== ENCOUNTER → 2017-10-20 | Outpatient (REF) | payer MEDICAID ==
[2017-10-20 05:42] LABS: APPEARANCE, URINE CLEAR (CLEAR); BACTERIA, URINE AUTO NEGATIVE (NEGATIVE); BILIRUBIN, URINE AUTO NEGATIVE (NEGATIVE); BLOOD, URINE BLOOD NEGATIVE (NEGATIVE); COLOR, URINE YELLOW (YELLOW); GLUCOSE, URINE (UA) AUTO 2+ mg/dL (NEGATIVE); KETONE, URINE AUTO TRACE mg/dL (NEGATIVE); LEUKOCYTE ESTERASE, URINE AUTO NEGATIVE (NEGATIVE); NITRITE, URINE AUTO NEGATIVE (NEGATIVE); PROTEIN, URINE AUTO NEGATIVE (NEGATIVE); RBC, URINE AUTO 3 /HPF (0-3); SPECIFIC GRAVITY URINE AUTO 1.015 (1.002-1.035); SQUAMOUS EPITHELIAL CELL UR AU 1 /HPF (0-6); WBC, URINE AUTO 3 /HPF (0-3)
== END ==
LOC: SKLAB5
DX: E11.9 Type 2 diabetes mellitus without complications (principal); I10 Essential (primary) hypertension; R30.9 Painful micturition, unspecified
CPT/HCPCS: 81001

== ENCOUNTER → 2017-10-23 | Outpatient (REF) | payer MEDICAID ==
[2017-10-23 15:17] LABS: BEDSIDE GLUCOSE CONFIRMATION 133 MG/DL (LESS THAN 200)
== END ==
LOC: M LAB 13:58
DX: E11.9 Type 2 diabetes mellitus without complications (principal)
CPT/HCPCS: 82947

== ENCOUNTER → 2017-11-09 | Outpatient (CLI) | payer MEDICAID | LOC: M RAD 07:36 | DX: I70.213 Atherosclerosis of native arteries of extremities with intermittent claudication, bilateral legs (principal); M79.605 Pain in left leg | CPT/HCPCS: 93926 ==

== ENCOUNTER → 2017-11-25 | Outpatient (REF) ==
[2017-11-25 08:57] LABS: BASO # 0.1 10^3/uL (0.0-0.2); BASO % 0.9 % (0.0-1.0); EOS # 0.1 10^3/uL (0.0-0.50); EOS % 1.1 % (0.0-3.0); HEMATOCRIT 34.4 % (36.0-47.0); HEMOGLOBIN 11.1 g/dl (12.0-15.5); IMMATURE GRANULOCYTE % 0.3 % (0-3.0); LYMPH # 2.2 10^3/uL (1.5-4.5); LYMPH % 29.3 % (24.0-44.0); MEAN CORPUSCULAR HEMOGLOBIN 30.2 pg (27.0-33.0); MEAN CORPUSCULAR HGB CONC 32.3 g/dl (32.0-36.5); MEAN CORPUSCULAR VOLUME 93.7 fl (80.0-96.0); MONO # 0.7 10^3/uL (0.0-0.8); MONO % 8.8 % (0.0-5.0); NEUTROPHILS # 4.5 10^3/uL (1.8-7.7); NEUTROPHILS % 59.6 % (36.0-66.0); PLATELET COUNT, AUTOMATED 202 10^3/uL (150-450); RED BLOOD COUNT 3.67 10^6/uL (4.00-5.40); RED CELL DISTRIBUTION WIDTH 12.3 % (11.5-14.5); WHITE BLOOD COUNT 7.5 10^3/uL (4.0-10.0)
[2017-11-25 09:04] LABS: ESTIMATED AVERAGE GLUCOSE 206 MG/DL (60-110); HEMOGLOBIN A1c 8.8 %
[2017-11-25 09:25] LABS: ALBUMIN 2.7 GM/DL (3.2-5.2); ALT/SGPT 17 U/L (12-78); ANION GAP 9 MEQ/L (8-16); BLOOD UREA NITROGEN 10 MG/DL (7-18); CALCIUM LEVEL 9.2 MG/DL (8.8-10.2); CARBON DIOXIDE LEVEL 29 MEQ/L (21-32); CHLORIDE LEVEL 102 MEQ/L (98-107); CHOLESTEROL LEVEL 138 MG/DL (<200); CHOLESTEROL RISK RATIO 2.379 (<5); CREATININE FOR GFR 0.76 MG/DL (0.55-1.30); GLOMERULAR FILTRATION RATE > 60.0 (>45); GLUCOSE, FASTING 217 MG/DL (70-100); HDL CHOLESTEROL 58 MG/DL (>40); LDL CHOLESTEROL 48.8 MG/DL (<100); NON-HDL-C 80 MG/DL; PHOSPHORUS LEVEL 3.1 MG/DL (2.5-4.9); POTASSIUM SERUM 4.3 MEQ/L (3.5-5.1); SODIUM LEVEL 140 MEQ/L (136-145); TRIGLYCERIDES LEVEL 156 MG/DL (<150); VALPROIC ACID (DEPAKOTE) 57.1 UG/ML (50.0-100.0)
== END ==
LOC: SKLAB5 09:40
DX: E78.5 Hyperlipidemia, unspecified (principal); R56.9 Unspecified convulsions; I50.9 Heart failure, unspecified; D64.9 Anemia, unspecified

== ENCOUNTER → 2017-12-23 | Outpatient (REF) ==
[2017-12-23 09:24] LABS: HEMATOCRIT 34.7 % (36.0-47.0); MEAN CORPUSCULAR HEMOGLOBIN 29.5 pg (27.0-33.0); MEAN CORPUSCULAR HGB CONC 31.7 g/dl (32.0-36.5); PLATELET COUNT, AUTOMATED 193 10^3/uL (150-450); RED BLOOD COUNT 3.73 10^6/uL (4.00-5.40); RED CELL DISTRIBUTION WIDTH 12.6 % (11.5-14.5); WHITE BLOOD COUNT 5.8 10^3/uL (4.0-10.0)
[2017-12-23 09:54] LABS: ALBUMIN 2.6 GM/DL (3.2-5.2); ALBUMIN/GLOBULIN RATIO 0.74 (1.00-1.93); ALKALINE PHOSPHATASE 111 U/L (45-117); ALT/SGPT 16 U/L (12-78); ANION GAP 8 MEQ/L (8-16); AST/SGOT 12 U/L (7-37); BILIRUBIN,TOTAL 0.2 MG/DL (0.2-1.0); BLOOD UREA NITROGEN 10 MG/DL (7-18); CALCIUM LEVEL 9.2 MG/DL (8.8-10.2); CARBON DIOXIDE LEVEL 29 MEQ/L (21-32); CHLORIDE LEVEL 107 MEQ/L (98-107); CREATININE FOR GFR 0.73 MG/DL (0.55-1.30); GLOMERULAR FILTRATION RATE > 60.0 (>45); GLUCOSE, FASTING 175 MG/DL (70-100); POTASSIUM SERUM 4.1 MEQ/L (3.5-5.1); SODIUM LEVEL 144 MEQ/L (136-145); TOTAL PROTEIN 6.1 GM/DL (6.4-8.2)
== END ==
LOC: SKLAB5 07:28
DX: M79.662 Pain in left lower leg (principal)

== ENCOUNTER → 2018-01-04 | Outpatient (CLI) | payer MEDICAID ==
[~2018-01-04] MED LIST changes: -*BLDWK8; -*GLUCOMETE; -/HALO5TAB PO; -/INSU7030; -/INSU7030 SC; -/IPRA3SP; -/LOR25TA OR; -/PANT40TA; -/TIOT18INH; -/TIOT18INH INH; -ABIL10TA; -ABIL10TA OR; -ABILIFY15 PO; -ACET65TA; -ALB2.5NEB NEB; -ALBU17IN INH; -ALBU17IN2; -ALBU83IN; -ALBU83IN IN; -ALBUTEROL INHALATION; -ARTANE PO; -ASPEC325 PO; -ASPI81TA83 OR; -ASTELIN NASAL; -AUG500 PO; -BABY81CH; -BACL10TA2; -BACL10TA2 OR; -BACL10TA2 PO; -BISA10SU PR; -BISA10SU2 RE; -CAPOTEN PO; -CEFT2VL IM; -CIPR500T19; -CIPR500T4 OR; -COLA100C2; -COLACE PO; -COMBVENT; -CRESTOR5 PO; -DEPA250C; -DEPA500T; -DOXYCYC100 PO; -DULCOLAX; -EYEDRO; -FEVE325S RE; -FLEEENE4 PR; -FLEETS; -FLONASESPR NASAL; -FLUO10TA2; -FLUO10TA2 OR; -FURO40TA2; -FURO40TA2 PO; -GLUCCOSEAC TOPICAL; -GLUCOSACCS; -GLUCOSE TEST; -HALDOL PO; -HALO10TA4; -HALO10TA4 PO; +HEPARIN 1,000 UNITS/ML 10ML VIAL (FOR RADIOLOGY& DIALYSIS ONLY) As Ordered; -HUMA100I SC; -HUMULINN SC; -INSULANT SC; -INSULIN 70/30; +ISOVUE-300 61% 50ML VIAL (Q9967) As Ordered; -KEFL500C OR; -KEFLEX500 PO; -LACHYDRIN TOP; -LANCMIS; -LANTUS SQ; -LASI40TA OR; -LIDO5DIS; +LIDOCAINE 2% MDV 20 ML VIAL As Ordered; -LISI10TA4; -LISI5TAB OR; -LISINOPR10 PO; -MACR50CA OR; +MIDAZOLAM INJ 2 MG/2 ML VIAL (J2250) As Ordered; -MILKSUS; -MILKSUS PO; -MIRALEX; -MIRALEX PO; -MUCINEX PO; -MULTIVIT; -MULTIVIT PO; -Macrobid; -NAPROS500 PO; -NICOTROLIN PO; -NIFEREX; -NOVOLOG100 MG/ML; -NOVOLOG100 MG/ML SC; -OMEP20TA7 OR; -OXYB10TA; -OXYB10TA OR; -PAIN325T; -PAIN325T OR; -PLAV75TA2; -PLAV75TA2 OR; -POLY IRON PO; -PRED20TA OR; -PROZ10CA; -ROBITUSSDM PO; -ROBITUSSIN CF PO; -ROSU10TA; -SENOKOT S PO; -SIMV40TA2 OR; -SPIRIVA [1,]; -SYRINS1CC SUBQ; -THERGRAN; -TYLE325T5 PO; -VALP25EL; -VALP25EL OR; -VICO5TAB; -XALATAN OD; -ZEBE5TAB; -ZEBE5TAB OR; -ZEST10TA; -ZOCO40TA; -[UNRECOGNIZED DRUG - CODE]; -[UNRECOGNIZED DRUG - CODE] PO; -[UNRECOGNIZED DRUG - CODE] PO; -[UNRECOGNIZED DRUG - OTHER]; -[UNRECOGNIZED DRUG - OTHER]; -[UNRECOGNIZED DRUG - OTHER]; -[UNRECOGNIZED DRUG - OTHER] -; -[UNRECOGNIZED DRUG - OTHER] SC; -[UNRECOGNIZED DRUG - REMARK] TOPICAL; +fentaNYL 100 MCG/2 ML INJECTION (J3010) As Ordered; -oxygen
== END | disposition home or self-care (01) ==
LOC: M IRPRO 07:35
DX: I70.222 Atherosclerosis of native arteries of extremities with rest pain, left leg (principal); I70.92 Chronic total occlusion of artery of the extremities
CPT/HCPCS: 36246

== ENCOUNTER → 2018-01-18 | Outpatient (REF) | payer MEDICAID ==
[2018-01-18 15:20] LABS: APPEARANCE, URINE CLOUDY (CLEAR); BACTERIA, URINE AUTO 2+ (NEGATIVE); BILIRUBIN, URINE AUTO NEGATIVE (NEGATIVE); BLOOD, URINE BLOOD 1+ (NEGATIVE); COLOR, URINE YELLOW (YELLOW); GLUCOSE, URINE (UA) AUTO NEGATIVE (NEGATIVE); KETONE, URINE AUTO NEGATIVE (NEGATIVE); LEUKOCYTE ESTERASE, URINE AUTO 3+ (NEGATIVE); NITRITE, URINE AUTO NEGATIVE (NEGATIVE); PROTEIN, URINE AUTO NEGATIVE (NEGATIVE); RBC, URINE AUTO 0 /HPF (0-3); SPECIFIC GRAVITY URINE AUTO 1.008 (1.002-1.035); SQUAMOUS EPITHELIAL CELL UR AU 2 /HPF (0-6); UROBILINOGEN, URINE AUTO 0.2 mg/dL (0.0-2.0); WBC, URINE AUTO TNTC /HPF (0-3); YEAST LIKE CELL URINE AUTO LARGE
== END ==
LOC: SKLAB5 08:00
DX: D64.9 Anemia, unspecified (principal); R39.89 Other symptoms and signs involving the genitourinary system
CPT/HCPCS: 81001

== ENCOUNTER → 2018-02-11 | Outpatient (REF) | payer MEDICAID ==
[2018-02-11 15:07] LABS: APPEARANCE, URINE HAZY (CLEAR); BACTERIA, URINE AUTO 2+ (NEGATIVE); BILIRUBIN, URINE AUTO NEGATIVE (NEGATIVE); BLOOD, URINE BLOOD 1+ (NEGATIVE); COLOR, URINE YELLOW (YELLOW); GLUCOSE, URINE (UA) AUTO NEGATIVE (NEGATIVE); KETONE, URINE AUTO TRACE mg/dL (NEGATIVE); LEUKOCYTE ESTERASE, URINE AUTO 1+ (NEGATIVE); MUCUS, URINE SMALL (NEGATIVE); NITRITE, URINE AUTO NEGATIVE (NEGATIVE); PROTEIN, URINE AUTO NEGATIVE (NEGATIVE); RBC, URINE AUTO 5 /HPF (0-3); SPECIFIC GRAVITY URINE AUTO 1.016 (1.002-1.035); SQUAMOUS EPITHELIAL CELL UR AU 6 /HPF (0-6); WBC, URINE AUTO 13 /HPF (0-3)
== END ==
LOC: SKLAB5 14:35
DX: R41.82 Altered mental status, unspecified (principal)
CPT/HCPCS: 81001

== ENCOUNTER → 2018-02-11 | Outpatient (REF) | payer MEDICAID ==
[2018-02-11 11:15] LABS: HEMATOCRIT 44.1 % (36.0-47.0); HEMOGLOBIN 13.3 g/dl (12.0-15.5); MEAN CORPUSCULAR HEMOGLOBIN 29.2 pg (27.0-33.0); MEAN CORPUSCULAR HGB CONC 30.2 g/dl (32.0-36.5); MEAN CORPUSCULAR VOLUME 96.9 fl (80.0-96.0); PLATELET COUNT, AUTOMATED 233 10^3/uL (150-450); RED BLOOD COUNT 4.55 10^6/uL (4.00-5.40); RED CELL DISTRIBUTION WIDTH 13.6 % (11.5-14.5); WHITE BLOOD COUNT 6.5 10^3/uL (4.0-10.0)
[2018-02-11 11:47] LABS: ALBUMIN 2.2 GM/DL (3.2-5.2); ALBUMIN/GLOBULIN RATIO 0.52 (1.00-1.93); ALKALINE PHOSPHATASE 118 U/L (45-117); ALT/SGPT 10 U/L (12-78); ANION GAP 6 MEQ/L (8-16); AST/SGOT 13 U/L (7-37); BILIRUBIN,TOTAL 0.2 MG/DL (0.2-1.0); BLOOD UREA NITROGEN 33 MG/DL (7-18); CALCIUM LEVEL 9.4 MG/DL (8.8-10.2); CARBON DIOXIDE LEVEL 32 MEQ/L (21-32); CHLORIDE LEVEL 121 MEQ/L (98-107); CREATININE FOR GFR 1.24 MG/DL (0.55-1.30); GLUCOSE, FASTING 219 MG/DL (70-100); POTASSIUM SERUM 3.8 MEQ/L (3.5-5.1); SODIUM LEVEL 159 MEQ/L (136-145); TOTAL PROTEIN 6.4 GM/DL (6.4-8.2)
== END ==
LOC: SKLAB5 10:19
DX: R41.82 Altered mental status, unspecified (principal)
CPT/HCPCS: 80053

== ENCOUNTER → 2018-02-12 | Outpatient (REF) | payer MEDICAID ==
[2018-02-12 09:19] LABS: ANION GAP 5 MEQ/L (8-16); BLOOD UREA NITROGEN 35 MG/DL (7-18); CALCIUM LEVEL 9.2 MG/DL (8.8-10.2); CARBON DIOXIDE LEVEL 29 MEQ/L (21-32); CHLORIDE LEVEL 115 MEQ/L (98-107); CREATININE FOR GFR 1.43 MG/DL (0.55-1.30); GLOMERULAR FILTRATION RATE 39.8 (>45); GLUCOSE, FASTING 205 MG/DL (70-100); POTASSIUM SERUM 3.8 MEQ/L (3.5-5.1); SODIUM LEVEL 149 MEQ/L (136-145)
== END ==
LOC: SKLAB5 14:07
DX: R41.82 Altered mental status, unspecified (principal)

== ENCOUNTER → 2018-02-13 | Outpatient (REF) | payer MEDICAID, MEDICARE | LOC: M LAB REF 13:47 → M LAB 13:48 | DX: E86.0 Dehydration (principal) ==